=== PATIENT | male | born 1950 | race Caucasian/White ===

== ENCOUNTER 2021-08-27 20:09 | Inpatient (IN) ==
[2021-08-27 20:58] LABS: Basophils % 0.2 % (0.0-0.8); Eosinophils # 0.4 10*3/uL (0.0-0.87); Eosinophils % 3.3 % (0.00-10.9); Hematocrit 44.8 VOL% (42.0-52.0); Hemoglobin 14.9 GM/DL (14.0-18.0); Immature Granulocytes % 0.5 %; Immature Granulocytes Absolute 0.06 #; Lymphocytes # 1.6 10*3/uL (1.4-4.0); Lymphocytes % 13.1 % (21.2-54.2); Mean Corpuscular HGB Conc 33.3 GM/DL (32-36); Mean Corpuscular Volume 90.1 FL (87-102); Mean Platelet Volume 9.3 FL (9.6-12.0); Monocytes # 1.1 10*3/uL (0.11-0.8); Monocytes % 8.5 % (1.7-12.7); Neutrophils % 74.4 % (38.7-73.9); Platelet Count 201 T/CUMM (130-400); Red Blood Count 4.97 MC/CUMM (3.8-5.5); Red Cell Distribution Width 12.9 % (9.3-17.3); White Blood Count 12.5 T/CUMM (4-12)
[2021-08-27 21:17] LABS: Albumin 3.8 G/DL (3.4-5.0); Bilirubin,Total 0.6 MG/DL (0.20-1.00); Calcium 9.1 MG/DL (8.5-10.1); Osmolality,Calculated 286.4 MOS/KG (273-304); Total Protein 6.4 G/DL (6.4-8.2)
[2021-08-28] MEDS ORDERED: ALUM/MAG/SIMETH/LIDO VISC 1:1 30 ML BOTTLE PO STA (01:55)
[2021-08-28] MEDS ORDERED: PIPERACILLIN/TAZOBACTAM 3,375 MG in SODIUM CHLORIDE 0.9% 100 ML IV STA (02:56)
[2021-08-28] MEDS ORDERED: ONDANSETRON 4 MG/2 ML VIAL IV PRN (03:16)
[2021-08-28] MEDS ORDERED: ACETAMINOPHEN 325 MG TABLET PO PRN (03:16)
[2021-08-28] MEDS ORDERED: MORPHINE 2 MG/1 ML SYRINGE IV PRN (03:21)
[2021-08-28] MEDS: LACTATED RINGERS 1,000 ML IV SCH ×2 (04:50→16:20)
[2021-08-28] MEDS: PANTOPRAZOLE 40 MG TABLET PO SCH (08:20)
[2021-08-28] MEDS: PIPERACILLIN/TAZOBACTAM 3,375 MG in SODIUM CHLORIDE 0.9% 100 ML IV SCH ×2 (12:54→21:20)
[2021-08-28] MEDS: ATORVASTATIN 40 MG TABLET PO SCH (21:19)
[2021-08-28] MEDS: TAMSULOSIN 0.4 MG CAPSULE PO SCH (21:19)
[2021-08-29] MEDS: PIPERACILLIN/TAZOBACTAM 3,375 MG in SODIUM CHLORIDE 0.9% 100 ML IV SCH ×3 (05:06→20:39)
[2021-08-29] MEDS: lisinopriL 2.5 MG TABLET PO SCH (08:12)
[2021-08-29] MEDS: PANTOPRAZOLE 40 MG TABLET PO SCH (08:12)
[2021-08-29] MEDS: LACTATED RINGERS 1,000 ML IV SCH ×4 (13:38→19:30)
[2021-08-29] MEDS: TAMSULOSIN 0.4 MG CAPSULE PO SCH (20:38)
[2021-08-29] MEDS: ATORVASTATIN 40 MG TABLET PO SCH (20:39)
[2021-08-29] MEDS ORDERED: ZALEPLON 5 MG CAPSULE PO PRN (21:55)
[2021-08-30] MEDS: PIPERACILLIN/TAZOBACTAM 3,375 MG in SODIUM CHLORIDE 0.9% 100 ML IV SCH (05:29)
[2021-08-30] MEDS: lisinopriL 2.5 MG TABLET PO SCH (10:18)
[2021-08-30] MEDS: PANTOPRAZOLE 40 MG TABLET PO SCH (10:18)
[2021-08-30 12:07] VITALS: BP 150/57
== END 2021-08-30 11:59 | disposition home or self-care (01) | DRG 392 ==
LOC: N.ED 20:09 → N.EDINP 08-28 03:13 → N.5E 08-28 05:42
PROVIDERS: ADMIT Surgery; ATTEND Surgery